=== PATIENT | male | born 1965 ===

== ENCOUNTER 2017-10-11 08:05 | Day surgery (SDC) | payer MEDICAID ==
[2017-09-28 11:42] VITALS: BMI 32.9
[2017-10-11] MEDS ORDERED: ceFAZolin IV 2 gm in Dextrose 0 GM/0 ML BAG IVPB ONE (10:19)
[2017-10-11] MEDS ORDERED: ceFAZolin IV 1 gm in Dextrose 1 GM/50 ML BAG IVPB ONE ×2 (10:19→11:07)
[2017-10-11] MEDS ORDERED: Bupivacaine 0.25% 20 ML INJ IJ ONE (10:21)
[2017-10-11] MEDS ORDERED: Lidocaine Hydrochloride 0 ML INJ ONE (10:21)
[2017-10-11] MEDS ORDERED: Lidocaine/Epinephrine 1% 1:100000 10 ML IJ ONE (10:27)
[2017-10-11] MEDS ORDERED: Propofol 10 mg/ml Inj (20 ML) ONE (10:59)
[2017-10-11] MEDS ORDERED: Midazolam 2 MG/2 ML VIAL ONE (11:00)
[2017-10-11] MEDS ORDERED: HYDROmorphone 0.5 mg/0.5 ml ISec IVP PRN (12:10)
--- NOTE | 2017-10-11 12:30 | PCM.SURG1 ---
Surgeon's Initial Post Op Note - Surgeon's Notes Surgeon: Dr. Kaveh Harris Supervisor Electric: Javon Wiggins PGY1, Bethany Segura OMS3 Type of Anesthesia: General Endo Pre-Operative Diagnosis: Right Anterior Neck Soft Tissue Mass Operative Findings: lipoma Post-Operative Diagnosis: same Operation Performed: Right Anterior Soft Tissue Mass Excision Specimen/Specimens Removed: Lipoma Estimated Blood Loss: EBL {In ML}: 15 Blood Products Given: N/A Drains Used: No Drains Date of Surgery/Procedure: 10/11/17 Time of Surgery/Procedure: 12:29
[2017-10-11 13:29] VITALS: RESP 18
[2017-10-11 14:44] VITALS: BP 114/73; PULSE 63; TEMP 97.6; O2SAT 98
--- NOTE | 2017-10-11 18:50 | PCM.OP ---
Operative Report - Operative Report Date of Surgery/Procedure: 10/11/17 Time of Surgery/Procedure: 10:45 Surgeon: Kaveh Harris MD Vaccinator: Javon Barry DO (PGY 1 resident) Anesthesia/Sedation: General endotracheal; 1% lidocaine with epinephrine+ 0.25 % margarine local Pre-Operative Diagnosis: Right anterior neck soft tissue mass, 3.5cmx2.5cm Post-Operative Diagnosis: Right anterior neck lipomatous mass Indication for Surgery: The patient is a 51-year-old male with history of a lump on his right anterior next noted several years ago. In 2014 CT neck showed lipoma 3.5cm superficial soft tissue mass anterior to right mid SCM muscle. It has slowly grown become mentally concerning to patient and wishes to have this removed for diagnosis and for cosmetic reasons. Details of HPI as documented in patients chart. All potential risks, benefits, and complications of the procedure were discussed with the patient, including neurovascular injury in superficial neck, and informed consent was obtained prior to the operation. Operative Findings: Bilobed lipomatous benign appearing soft tissue mass deep to platysma and adherent to undersurface of platysma, tracking deep but anterior to mid SCM muscle on right, Medial to external jugular vein (which was prominent and easily identified). Specimen measured approximately 4.5x4cm in max dimension. Inferiorly the mass was abutting nerves running anterior to SCM muscle, likely branches of transverse cervical nerves, which were carefully dissected and preserved. Procedure/Operation Description: PROCEDURE PERFORMED: 1. Excision of lipomatous soft tissue mass of right anterior neck. 2. Layered wound closure. DETAILS OF OPERATION: The patient was given a preoperative dose of Ancef 2g 20 minutes before the incision. No wei catheter was used. He was taken to the operating room and placed supine on the operating room table with both arms on padded armboard placed at patients side in neutral position. He was strapped with safety belt on thighs. Sequential compression stockings placed for DVT prophylaxis. Following successful endotracheal intubation, hair removed from neck burroughs line with shaver done and lower body warming blanket placed to maintain body temperature. A blank roll was placed transversely below patients upper back and shoulder and neck turned to left side to expose operative field. Appropriate head foam was used and no overextension of neck. The right neck was prepped and draped in sterile fashion. A time out was performed prior to incision. The borders of the soft tissue mass were marked with marker. Next, approximately 10cc of 1% lidocaine mixed with 0.25% Marcaine were used to anesthetize the skin directly over the mass. A #10 blade scalpel was utilized to make an approximately 3.5cm transverse skin incision over the soft tissue mass directly over mid portion of SCM muscle. This was taken down to subcutaneous tissue readily, the platysma muscle was divided with cautery, and readily seen was the fatty tissue mass. The mass was circumferentially dissected using a combination of blunt, sharp and electrocautery dissection. Care was taken to preserve the transverse cervical nervie fibers crossing over the SCM muscle body as well as the prominent EJ vein laterally. The mass was bilobed and findings per above operative findings section. The mass was removed in its entirety, appeared benign, and sent for permanent pathology. The wound was then irrigated, and hemostasis was obtained. Additional local anesthesia ( 10mL) was injected into the deeper layer of tissue. The wound was closed in multiple layers to obliterate the large wound cavity. #2-0 Vicryl running suture was used to re-approximate the divided fibers of platysma, followed by 3- 0 interrupted Vicryl sutures for deep dermal and sub cutaneous tissue, and finally skin closed using running 4-0 Monocryl. 10mL of local anesthesia was again given into the skin around the incision and finally Dermabond was applied. Patient was extubated in the OR and taken to recovery in stable condition. I was present for the entirety of the operation. Sponge needle, and instrument counts were correct. Estimated Blood Loss: 20ml Drains: none Complications: none Specimen: right neck lipoma Discharge & Condition: to recovery in stable condition.
== END 2017-10-11 14:40 | disposition home or self-care (01) ==
LOC: C.SDS 08:05
PROVIDERS: ATTEND Surgery
DX: D17.0 Benign lipomatous neoplasm of skin and subcutaneous tissue of head, face and neck (principal)
CPT/HCPCS: 21552; 88304; J0690; J1885; J2001; J2250; J2405; J2704; J3010

== ENCOUNTER 2017-12-13 13:17 | Emergency (ER) | payer MEDICAID ==
[2017-12-13 13:17] VITALS: BMI 32.9
[2017-12-13 13:31] VITALS: TEMP 97.6; O2SAT 98
--- NOTE | 2017-12-13 14:38 | C.PDOC ---
History Of Present Illness 51 y/o male presents to ED with c/o right wrist swelling since this morning. Patient states 2 days ago was playing basketball and felt he pulled left leg muscle. Patient states 1 day ago noted pain to right wrist and developed swelling this morning. Patient reports pain with taking deep breaths and has not taken pain medication. Patient denies chest pain, sob, visual changes, nausea, vomiting, neck pain, recent travel or any other physical complaints at this time. (Emily Gracia) History Per: Patient History/Exam Limitations: no limitations Onset/Duration Of Symptoms: Days Current Symptoms Are (Timing): Still Present Quality: "Pain" Time Seen by Provider: 12/13/17 13:59 Chief Complaint (Nursing): Upper Extremity Problem/Injury Past Medical History Reviewed: Historical Data, Nursing Documentation, Vital Signs - Medical History PMH: Fractures (LEFT ARM-FX.-SURGERY DONE), HTN, Hypercholesterolemia Surgical History: No Surg Hx Family History: States: No Known Family Hx - Social History Hx Tobacco Use: No Hx Alcohol Use: No Hx Substance Use: No - Immunization History Hx Tetanus Toxoid Vaccination: No Hx Influenza Vaccination: No Hx Pneumococcal Vaccination: No Vital Signs: Last Vital Signs Temp 97.6 F 12/13/17 13:26 Pulse 82 12/13/17 14:46 Resp 16 12/13/17 14:46 BP 135/82 12/13/17 14:46 Pulse Ox 98 12/13/17 22:17 Review Of Systems Constitutional: Negative for: Fever, Chills Respiratory: Negative for: Shortness of Breath Musculoskeletal: Positive for: Hand Pain Skin: Negative for: Rash Neurological: Negative for: Weakness, Numbness Physical Exam - Physical Exam Appears: Non-toxic, No Acute Distress Skin: Warm, Dry, No Rash Head: Atraumatic, Normacephalic Eye(s): bilateral: Normal Inspection, EOMI Nose: Normal Oral Mucosa: Moist Chest: Tenderness (reproducible anterior chest wall) Extremity: Tenderness (to left lower leg and dorsal aspect of right wrist), No Calf Tenderness, Capillary Refill (<2 seconds), No Deformity, Swelling (dorsal aspect of right wrist ) Pulses: Right Radial: Normal, Left Dorsalis Pedis: Normal Neurological/Psych: Oriented x3, Normal Speech, Normal Motor, Normal Sensation ED Course And Treatment ECG: Interpreted By Me, Viewed By Me ECG Rhythm: Sinus Bradycardia ECG Interpretation: No Changes From Prior (09/28/17) Rate From EC (BPM) O2 Sat by Pulse Oximetry: 98 (RA) Pulse Ox Interpretation: Normal Progress Note: Xray showed no fracture or dislocation. On reassessment, patient is resting comfortably, and is in no acute distress. Patient was instructed to follow up with physician/clinic in 1-2 days for further evaluation. Disposition - Disposition Disposition Time: 14:39 - Disposition Referrals: Osmar Scott MD [Staff Provider] - Disposition: HOME/ ROUTINE Condition: STABLE Additional Instructions: Rest, ice and elevate. Follow up with your doctor in 1-2 days. Prescriptions: Naproxen [Naprosyn] 1 tab PO BID PRN #20 tab PRN Reason: Pain Instructions: Wrist Sprain (DC) Forms: [employer] ([place]ian) - Clinical Impression Clinical Impression: Wrist sprain, Muscle strain - PA / CHORUS DANCER / Resident Statement MD/DO has reviewed & agrees with the documentation as recorded. - Scribe Statement The provider has reviewed the documentation as recorded by the Scribe - Scribe Statement Marc French All medical record entries made by the Scribe were at my direction and personally dictated by me. I have reviewed the chart and agree that the record accurately reflects my personal performance of the history, physical exam, medical decision making, and the department course for this patient. I have also personally directed, reviewed, and agree with the discharge instructions and disposition. (Emily Gracia) Addendum Addendum: 12/15/17 08:54 Wrist xray was flagged for PA review. Patient was called back and instructed to return to the ED for a splint for possible scaphoid fx and avascular necrosis. Also will require Hand surgeon follow up. Patient agrees and will return to the ED as soon as possible. 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 Hyperdensity and hyperostoses scaphoid -trauma -fracture here is suspect -remote fracture favored over acute. Old trauma healed fracture deformity 5th metacarpal was well noted. Secondary arthrosis changes. Comments consider MRI of the right wrist for further evaluation of the scapholunate ligament and the scaphoid bone marrow a potential avascular necrosis here (Mary Ellen Bernstein)
[2017-12-13 14:47] VITALS: BP 135/82; PULSE 82; RESP 16
--- NOTE | 2017-12-13 15:33 | RAD ---
Date of service: 12/13/2017 PROCEDURE: Right Wrist Radiographs. HISTORY: trauma COMPARISON: None. FINDINGS: BONES: On series 4, image 1, there is hyperdensity and osseous hypertrophy over the mid to distal scaphoid -trauma here - of unknown precise chronicity is a consideration. The scapholunate interval also appears widened between 3.5 and 4.0 mm. Scapholunate disassociation/ ligamentous injury here needs to be considered. JOINTS: Arthrosis radiocarpal and scaphoid trapezium changes are inferred. Deformity of the 5th meta carpal shaft compatible with old healed trauma. SOFT TISSUES: Normal. OTHER FINDINGS: None. 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 Hyperdensity and hyperostoses scaphoid -trauma -fracture here is suspect -remote fracture favored over acute. Old trauma healed fracture deformity 5th metacarpal was well noted. Secondary arthrosis changes Comments consider MRI of the right wrist for further evaluation of the scapholunate ligament and the scaphoid bone marrow a potential avascular necrosis here Comments: Study marked for PA review .
--- NOTE | 2017-12-14 12:54 | CARD ---
APPROVED REPORT Date of service: 12/13/2017 EKG Measurement Heart [id number] P55 [id number] <Conclusion> Sinus bradycardia ST & T wave abnormality, consider lateral ischemia Abnormal ECG
== END 2017-12-13 14:51 | disposition home or self-care (01) ==
LOC: C.ER 13:17
DX: S63.501A Unspecified sprain of right wrist, initial encounter (principal); S66.911A Strain of unspecified muscle, fascia and tendon at wrist and hand level, right hand, initial encounter; X58.XXXA Exposure to other specified factors, initial encounter; Y93.67 Activity, basketball

== ENCOUNTER 2017-12-15 14:29 | Emergency (ER) | payer MEDICAID ==
[2017-12-15 14:29] VITALS: BMI 32.9
[2017-12-15 14:41] VITALS: BP 132/85; PULSE 62; RESP 16; TEMP 98.3; O2SAT 97
--- NOTE | 2017-12-15 14:53 | C.PDOC ---
History Of Present Illness 52-year-old male presents to the ED after receiving call back regarding x-ray result. Patient was seen here 2 days ago, and had x-ray showing (+) scaphoid fracture. Patient denies any new pain or swelling. No associated numbness, tingling, or focal weakness. Time Seen by Provider: 12/15/17 14:43 Chief Complaint (Nursing): Upper Extremity Problem/Injury History Per: Patient History/Exam Limitations: no limitations Onset/Duration Of Symptoms: Days Current Symptoms Are (Timing): Still Present Past Medical History Reviewed: Historical Data, Nursing Documentation, Vital Signs Vital Signs: Last Vital Signs Temp 98.3 F 12/15/17 14:39 Pulse 62 12/15/17 14:39 Resp 16 12/15/17 14:39 BP 132/85 12/15/17 14:39 Pulse Ox 97 12/15/17 15:48 - Medical History PMH: Fractures (LEFT ARM-FX.-SURGERY DONE), HTN, Hypercholesterolemia Denies: Chronic Kidney Disease Surgical History: Hernia Repair Other Surgeries: Left arm surgery Family History: States: No Known Family Hx - Social History Hx Tobacco Use: No Hx Alcohol Use: No Hx Substance Use: No - Immunization History Hx Tetanus Toxoid Vaccination: No Hx Influenza Vaccination: No Hx Pneumococcal Vaccination: No Review Of Systems Musculoskeletal: Positive for: Hand Pain (right wrist pain) Skin: Negative for: Rash Neurological: Negative for: Weakness, Numbness, Incoordination Physical Exam - Physical Exam Appears: Well, Non-toxic, No Acute Distress Skin: Warm, Dry, No Rash Head: Atraumatic, Normacephalic Eye(s): bilateral: Normal Inspection Oral Mucosa: Moist Neck: Normal ROM Extremity: Normal ROM, Tenderness (Mild tenderness to the right hand and radial aspect of wrist), Capillary Refill (less than 2 sec), No Swelling Pulses: Left Radial: Normal, Right Radial: Normal Neurological/Psych: Oriented x3, Normal Speech, Normal Motor, Normal Sensation ED Course And Treatment O2 Sat by Pulse Oximetry: 97 (RA) Pulse Ox Interpretation: Normal Medical Decision Making Medical Decision Making: Impression: Scaphoid fracture Plan: Thumb SPICA splint applied by machine tech. Patient counseled regarding the importance of follow up with ortho Disposition Counseled Patient/Family Regarding: Studies Performed, Diagnosis, Need For Followup - Disposition Referrals: Jairo Wright III, MD [Staff Provider] - Disposition: HOME/ ROUTINE Disposition Time: 14:52 Condition: GOOD Additional Instructions: follow up with orthopedic in office or clinic for further evaluation leave splint in place until seen by ortho take pain medicine as needed Instructions: Wrist Fracture (DC) Forms: [employer] ([place]) - POA Present On Arrival: None - Clinical Impression Clinical Impression: Fracture of scaphoid bone - PA / PHYSICAL THERAPIST ASSISTANT / Resident Statement MD/DO has reviewed & agrees with the documentation as recorded. - Scribe Statement The provider has reviewed the documentation as recorded by the Scribe (Blanca Guzman) All medical record entries made by the Scribe were at my direction and personally dictated by me. I have reviewed the chart and agree that the record accurately reflects my personal performance of the history, physical exam, medical decision making, and the department course for this patient. I have also personally directed, reviewed, and agree with the discharge instructions and disposition.
== END 2017-12-15 15:38 | disposition home or self-care (01) ==
LOC: C.ER 14:29
DX: S62.001A Unspecified fracture of navicular [scaphoid] bone of right wrist, initial encounter for closed fracture (principal); X58.XXXA Exposure to other specified factors, initial encounter